=== PATIENT | male | born 1955 | race Two or more races ===

== ENCOUNTER 2017-03-05 15:02 | Emergency (ER) | payer OTHER ==
[~2017-03-05] VITALS: Ht 182.9 cm; Wt 103.0 kg
[2017-03-05 16:18] LABS: Basophils # (auto) 0.1 uL; Basophils % (auto) 1.1 % (0.0-2.0); Eosinophils # (auto) 0.3 uL; Hematocrit 49.2 % (41.0-53.0); Hemoglobin 16.8 g/dL (13.5-17.5); Lymphocytes # (auto) 1.8 uL; Lymphocytes % (auto) 18.1 % (10.0-50.0); Mean Corpuscular Hemoglobin 30.9 pg (28.0-32.0); Mean Corpuscular Hgb Conc. 34.2 g/dL (32.0-36.0); Mean Corpuscular Volume 90.2 fL (80.0-100.0); Mean Platelet Volume 8.3 fL (7.4-10.4); Monocytes # (auto) 0.8 uL; Monocytes % (auto) 8.2 % (0.0-12.0); Neutrophils # (auto) 7.1 uL; Neutrophils % (auto) 69.6 % (37.0-80.0); Platelet Count (auto) 237 10^3/uL (140-450); Red Cell Distribution Width 14.4 % (11.6-16.0); White Blood Cell 10.1 10^3/uL (4.4-10.8)
[2017-03-05 16:25] LABS: Albumin 3.3 g/dL (3.4-5.0); Anion Gap 12 (5-15); Blood Urea Nitrogen 14 mg/dL (7-18); Carbon Dioxide 20 mmol/L (21-32); Chloride 106 mmol/L (98-107); Glucose 247 mg/dL (74-106); Potassium 4.6 mmol/L (3.5-5.1); Sodium 138 mmol/L (136-145)
[2017-03-05 16:27] LABS: Aspartate Aminotransferase 18 U/L (15-37); BUN/Creatinine Ratio 13.6; GFR African American 95 mL/min; GFR Non-African American 78 mL/min
[2017-03-05 16:32] LABS: Alkaline Phosphatase 76 U/L (45-117); Bilirubin, Total 0.4 mg/dL (0.2-1.0); Total Protein 7.2 g/dL (6.4-8.2)
[2017-03-05 16:54] VITALS: BP 138/89
== END 2017-03-05 18:29 | disposition home or self-care (01) ==
LOC: EDBD 15:02 → ER 15:19
DX: E11.9 Type 2 diabetes mellitus without complications (principal); I10 Essential (primary) hypertension; F17.210 Nicotine dependence, cigarettes, uncomplicated
CPT/HCPCS: 36415; 70450; 80053; 84484; 85025; 93005

== ENCOUNTER 2017-03-27 13:04 | Emergency (ER) | payer OTHER ==
[~2017-03-27] VITALS: Ht 182.9 cm; Wt 99.8 kg
[2017-03-27 13:25] VITALS: BP 131/73
[2017-03-27 13:57] LABS: Basophils # (auto) 0 uL; Basophils % (auto) 0.1 % (0.0-2.0); CONDITION Y; Eosinophils # (auto) 0.3 uL; Hematocrit 50.9 % (41.0-53.0); Hemoglobin 17.4 g/dL (13.5-17.5); Lymphocytes # (auto) 1.5 uL; Lymphocytes % (auto) 11.2 % (10.0-50.0); Mean Corpuscular Hgb Conc. 34.3 g/dL (32.0-36.0); Mean Corpuscular Volume 90.3 fL (80.0-100.0); Mean Platelet Volume 7.6 fL (7.4-10.4); Monocytes # (auto) 0.1 uL; Monocytes % (auto) 0.6 % (0.0-12.0); Neutrophils # (auto) 11.5 uL; Neutrophils % (auto) 86.1 % (37.0-80.0); Platelet Count (auto) 240 10^3/uL (140-450); Red Cell Distribution Width 14.6 % (11.6-16.0); White Blood Cell 13.4 10^3/uL (4.4-10.8)
[2017-03-27 14:30] LABS: Albumin 3.6 g/dL (3.4-5.0); Alkaline Phosphatase 75 U/L (45-117); Anion Gap 6 (5-15); Aspartate Aminotransferase 42 U/L (15-37); BUN/Creatinine Ratio 12.3; Bilirubin, Total 0.4 mg/dL (0.2-1.0); Blood Urea Nitrogen 13 mg/dL (7-18); Calcium 8.9 mg/dL (8.5-10.1); Carbon Dioxide 26 mmol/L (21-32); Chloride 102 mmol/L (98-107); GFR African American 92 mL/min; GFR Non-African American 76 mL/min; Glucose 173 mg/dL (74-106); Potassium 4.5 mmol/L (3.5-5.1); Sodium 134 mmol/L (136-145); Total Protein 7.4 g/dL (6.4-8.2)
== END 2017-03-27 17:29 | disposition left against medical advice (07) ==
LOC: ER 13:04 → EDBD 13:04 → ER 17:29
DX: R53.1 Weakness (principal); Z53.21 Procedure and treatment not carried out due to patient leaving prior to being seen by health care provider
CPT/HCPCS: 36415; 80053; 84484; 85025; 93005

== ENCOUNTER 2017-03-29 14:05 | Emergency (ER) | payer OTHER ==
[~2017-03-29] VITALS: Ht 182.9 cm; Wt 99.8 kg
[2017-03-29] MEDS ORDERED: SODIUM CHLORIDE 0.9% 1,000 ML IV ONE ×2 (14:44)
[2017-03-29 15:22] LABS: Basophils # (auto) 0.1 uL; CONDITION Y; Eosinophils # (auto) 0.2 uL; Eosinophils % (auto) 2.3 % (0.0-7.0); Hematocrit 50.2 % (41.0-53.0); Lymphocytes # (auto) 1.5 uL; Lymphocytes % (auto) 15.1 % (10.0-50.0); Mean Corpuscular Hemoglobin 30.9 pg (28.0-32.0); Mean Corpuscular Hgb Conc. 33.9 g/dL (32.0-36.0); Mean Platelet Volume 7.8 fL (7.4-10.4); Monocytes # (auto) 1.1 uL; Monocytes % (auto) 10.9 % (0.0-12.0); Neutrophils % (auto) 70.7 % (37.0-80.0); Platelet Count (auto) 232 10^3/uL (140-450); Red Cell Distribution Width 14.7 % (11.6-16.0); White Blood Cell 9.9 10^3/uL (4.4-10.8)
[2017-03-29 15:41] LABS: Albumin 3.5 g/dL (3.4-5.0); BUN/Creatinine Ratio 12.3; Bilirubin, Total 0.5 mg/dL (0.2-1.0); Calcium 8.4 mg/dL (8.5-10.1); Potassium 4.4 mmol/L (3.5-5.1)
[2017-03-29 15:52] LABS: Partial Thromboplastin Time 28.2 sec (22.64-33.71); Prothrombin Time 10.9 sec (9.37-12.3)
[2017-03-29 16:00] VITALS: BP 147/88
== END 2017-03-29 17:11 | disposition home or self-care (01) ==
LOC: EDBD 14:05 → ER 14:12
DX: E86.0 Dehydration (principal); F17.210 Nicotine dependence, cigarettes, uncomplicated; E11.9 Type 2 diabetes mellitus without complications; I10 Essential (primary) hypertension
CPT/HCPCS: 36415; 71010; 80053; 84484; 85025; 85610; 85730; 93005; 96360; 96361; 99285; J7030

== ENCOUNTER 2017-04-26 13:39 | Emergency (ER) | payer OTHER ==
[~2017-04-26] VITALS: Ht 182.9 cm; Wt 86.2 kg
[2017-04-26] MEDS ORDERED: KETOROLAC TROMETH 60MG/2ML VIAL IM ONE (18:15)
[2017-04-26 19:10] VITALS: BP 114/80
== END 2017-04-26 20:27 | disposition home or self-care (01) ==
LOC: EDBD 13:39 → ER 13:41
DX: S76.911A Strain of unspecified muscles, fascia and tendons at thigh level, right thigh, initial encounter (principal); E11.9 Type 2 diabetes mellitus without complications; I10 Essential (primary) hypertension; F17.210 Nicotine dependence, cigarettes, uncomplicated; X58.XXXA Exposure to other specified factors, initial encounter; Y93.89 Activity, other specified; Y99.8 Other external cause status; Y92.89 Other specified places as the place of occurrence of the external cause
CPT/HCPCS: 93971; 96372; 99284; J1885